=== PATIENT | female | born 1990 | race Hispanic/Latino ===

== ENCOUNTER 2024-01-26 17:27 | Emergency (ER) | payer SELFPAY ==
[~2024-01-26] VITALS: Ht 152.4 cm; Wt 63.5 kg
[~2024-01-26 17:27] MED LIST: CIPR-278 PO
[2024-01-26] MEDS ORDERED: CIPR7.5D7 OT (18:19)
[2024-01-26 18:21] VITALS: BP 122/66; PULSE 86; RESP 16; O2SAT 98
[2024-01-26] MEDS: ACETAMINOPHEN 500 MG TABLET PO ONE (18:24)
[2024-01-26] MEDS ORDERED: CARB15DR61 OT (18:35)
== END 2024-01-26 18:42 | disposition home or self-care (01) ==
LOC: EDH 17:27
DX: H60.92 Unspecified otitis externa, left ear (principal); H61.22 Impacted cerumen, left ear; Z79.899 Other long term (current) drug therapy